=== PATIENT | female | born 1960 | race Hispanic/Latino ===

== ENCOUNTER → 2019-08-19 | Outpatient (CLI) | payer OTHER | END | disposition home or self-care (01) | LOC: RAH 09:53 | PROVIDERS: ATTEND Family Medicine | DX: R51 Headache (principal) | CPT/HCPCS: 70260 ==

== ENCOUNTER → 2019-09-01 | Outpatient (CLI) | payer OTHER ==
[2019-09-01 11:19] LABS: THYROID STIMULATING HORMONE 21.07 uIU/mL (0.36-3.74)
== END | disposition home or self-care (01) ==
LOC: LAB 10:24
PROVIDERS: ATTEND Family Medicine
DX: E03.9 Hypothyroidism, unspecified (principal); G44.89 Other headache syndrome; R00.1 Bradycardia, unspecified
CPT/HCPCS: 36415; 84439; 84443; 84481; 85651; 86003; 86005; 86376